=== PATIENT | female | born 1975 | race Caucasian/White ===

== ENCOUNTER 2018-05-04 06:51 | Day surgery (SDC) | payer MEDICAID ==
[~2018-05-04 06:51] MED LIST: PROPOFOL 40 ML; ROCURONIUM 50 MG INJ
[2018-05-04] MEDS ORDERED: PROPOFOL 200 MG INJ (07:00)
[2018-05-04] MEDS ORDERED: CEFAZOLIN 1 GM INJ (07:00)
[2018-05-04] MEDS ORDERED: LIDOCAINE 2% (SDV) 5 ML INJ (07:00)
[2018-05-04] MEDS ORDERED: SEVOFLURANE 15 MIN (07:00)
[2018-05-04] MEDS ORDERED: CEFAZOLIN 1 GM/50 ML (PMX) 50 ML IVPB (08:00)
[2018-05-04] MEDS ORDERED: BUPIVACAINE 0.5% (SDV) 30 ML INJ (10:01)
[2018-05-04] MEDS ORDERED: ISOSULFAN BLUE 1% 5 ML INJ SC (10:02)
[2018-05-04] MEDS: ACETAMINOPHEN 500 MG TAB PO (10:17)
[2018-05-04] MEDS: METOCLOPRAMIDE 10 MG INJ IV (10:17)
[2018-05-04] MEDS: SOD CHLORIDE 0.9% 1,000 ML IV (10:18)
[2018-05-04] MEDS ORDERED: MIDAZOLAM 1 MG/ML 2 ML INJ (10:28)
[2018-05-04] MEDS ORDERED: FENTAnyl 50 MCG/ML VIAL (10:29)
[2018-05-04] MEDS ORDERED: HYDROmorphONE 1 MG/5 ML IV SYRINGE IV ×2 (10:30)
[2018-05-04] MEDS ORDERED: DIPHENHYDRAMINE 50 MG INJ IV (10:30)
[2018-05-04] MEDS ORDERED: ALBUTEROL 0.083% (NEB) 2.5 MG/3 ML AMP HHN (10:30)
[2018-05-04] MEDS ORDERED: morphine (1 MG/ML) 10ML SYRINGE IV ×2 (10:30)
[2018-05-04] MEDS ORDERED: LABETALOL HCL 20MG INJ IV (10:30)
[2018-05-04] MEDS ORDERED: FENTAnyl 50 MCG/ML VIAL IV ×2 (10:30)
[2018-05-04] MEDS ORDERED: FAMOTIDINE 20 MG INJ (10:30)
[2018-05-04] MEDS ORDERED: ONDANSETRON 4 MG INJ IV (10:30)
[2018-05-04] MEDS ORDERED: DEXAMETHASONE 4 MG/ML 5 ML INJ (10:30)
[2018-05-04] MEDS ORDERED: MEPERIDINE 25 MG INJ IV (10:30)
[2018-05-04] MEDS ORDERED: OXYCODONE/ACETAMINOPHEN (5/325) TAB PO ×2 (10:30)
[2018-05-04] MEDS ORDERED: EPHEDrine SULFATE 50 MG/5 ML SYG (10:57)
[2018-05-04] MEDS: LIDOCAINE 1% (MPF) 30 ML INJ (12:27)
== END 2018-05-04 13:56 | disposition home or self-care (01) ==
LOC: SDS 06:51
DX: D24.2 Benign neoplasm of left breast (principal); E66.9 Obesity, unspecified; Z68.32 Body mass index [BMI] 32.0-32.9, adult
CPT/HCPCS: 19101; 84703; 88307